=== PATIENT | female | born 1945 | race Caucasian/White ===

== ENCOUNTER 2022-02-01 15:43 | Emergency (ER) | payer OTHER ==
[~2022-02-01] VITALS: Ht 162.6 cm; Wt 70.3 kg
[2022-02-01 15:49] VITALS: BP_SYST 126
[2022-02-01 16:42] LABS: BASOPHILS # (AUTO) 0.1 K/uL (0.0-0.2); EOSINOPHILS # (AUTO) 0.2 K/uL (0.0-0.4); EOSINOPHILS % (AUTO) 2.9 % (0.0-4.0); HEMATOCRIT 41.4 % (36-48); HEMOGLOBIN 13.7 g/dL (12.0-16.0); LYMPHOCYTES # (AUTO) 2.3 K/uL (1.0-5.5); LYMPHOCYTES % (AUTO) 33.3 % (20.5-51.5); MEAN CORPUSCULAR HEMOGLOBIN 27 pg (27-31); MEAN CORPUSCULAR HGB CONC 33 % (32-36); MEAN CORPUSCULAR VOLUME 82 fL (79.0-98.0); MONOCYTES # (AUTO) 0.7 K/uL (0.0-1.0); MONOCYTES % (AUTO) 10.7 % (1.7-9.3); NEUTROPHILS # (AUTO) 3.6 K/uL (1.8-7.7); NEUTROPHILS % (AUTO) 52.1 % (40.0-70.0); PLATELET COUNT (AUTO) 261 K/uL (130-430); RED BLOOD CELL COUNT(AUTO) 5.02 MIL/uL (4.2-6.2); RED CELL DISTRIBUTION WIDTH 16.3 % (9.0-15.0); WHITE BLOOD COUNT (AUTO) 6.8 K/uL (4.8-10.8)
[2022-02-01 17:10] LABS: C-REACTIVE PROTEIN QUANT < 0.2 mg/dL (0-0.5)
[2022-02-01 18:14] LABS: ANION GAP 13 (5-15); CALCIUM 8.7 mg/dL (8.4-11.0); CHLORIDE 107 mmol/L (98-107); CREATININE 0.72 mg/dL (0.55-1.30); GLUCOSE 77 mg/dL (70-99); POTASSIUM 3.7 mmol/L (3.5-5.1); SODIUM SERUM 142 mmol/L (136-145); UREA NITROGEN, BLOOD 20 mg/dL (8-21)
[2022-02-01 18:15] LABS: ALANINE AMINOTRANSFERASE 30 U/L (12-78); ALBUMIN 3.8 g/dL (3.4-4.8); ASPARTATE AMINOTRANSFERASE 20 U/L (10-37); TOTAL BILIRUBIN 0.3 mg/dL (0.0-1.0)
== END 2022-02-01 16:37 | disposition left against medical advice (07) ==
LOC: SED 15:43
DX: M25.562 Pain in left knee (principal); R47.81 Slurred speech; M06.9 Rheumatoid arthritis, unspecified
CPT/HCPCS: 36415; 80053; 84484; 85025; 86140; 99283

== ENCOUNTER 2023-04-20 19:53 | Emergency (ER) | payer OTHER ==
[~2023-04-20] VITALS: Ht 157.5 cm; Wt 68.0 kg
[2023-04-20 20:17] VITALS: BP_SYST 132
--- NOTE | 2023-04-20 20:17 | NUR ---
Triaged and placed patient in ER bed 1 for evaluation. Report given to CLEMENTE WELLER for continuity of care. VSS, no acute respiratory distress noted at this time. Instructed to notify ED staff for any changes in condition or worsening of symptoms. Patient verbalized understanding.
--- NOTE | 2023-04-20 20:28 | NUR ---
Dr. MALIK is at bedside examining the patient.
--- NOTE | 2023-04-20 20:45 | NUR ---
RECEIVED FOR CARE AFTER REPORT. PLAN OF CARE EXPLAINED TO PT. VOICED UNDERSTANDING. AWAITING ADDITIONAL EVAL AND ORDERS.
[2023-04-20 20:59] LABS: BASOPHILS # (AUTO) 0.1 K/uL (0.0-0.2); BASOPHILS % (AUTO) 0.9 % (0.0-2.0); EOSINOPHILS # (AUTO) 0.1 K/uL (0.0-0.4); HEMATOCRIT 38.3 % (36-48); HEMOGLOBIN 12.6 g/dL (12.0-16.0); LYMPHOCYTES # (AUTO) 1.9 K/uL (1.0-5.5); LYMPHOCYTES % (AUTO) 25.2 % (20.5-51.5); MEAN CORPUSCULAR HEMOGLOBIN 26 pg (27-31); MEAN CORPUSCULAR HGB CONC 33 % (32-36); MEAN CORPUSCULAR VOLUME 81 fL (79.0-98.0); MONOCYTES # (AUTO) 0.9 K/uL (0.0-1.0); MONOCYTES % (AUTO) 12.2 % (1.7-9.3); NEUTROPHILS # (AUTO) 4.4 K/uL (1.8-7.7); NEUTROPHILS % (AUTO) 59.7 % (40.0-70.0); PLATELET COUNT (AUTO) 210 K/uL (130-430); RED BLOOD CELL COUNT(AUTO) 4.76 MIL/uL (4.2-6.2); RED CELL DISTRIBUTION WIDTH 15.4 % (9.0-15.0); WHITE BLOOD COUNT (AUTO) 7.4 K/uL (4.8-10.8)
[2023-04-20] MEDS ORDERED: BACITRACIN 1 GM OINT TP ONE (21:00)
[2023-04-20] MEDS ORDERED: DIPHTH,PERTUSS(ACELL),TET VAC 0.5 ML VIAL (Tdap) I.M. ONE (21:00)
[2023-04-20 21:14] LABS: ANION GAP 10 (5-15); CALCIUM 8.8 mg/dL (8.4-11.0); CHLORIDE 105 mmol/L (98-107); CREATININE 1.17 mg/dL (0.55-1.30); GLUCOSE 115 mg/dL (70-99); UREA NITROGEN, BLOOD 23 mg/dL (8-21)
[2023-04-20 21:18] LABS: ALANINE AMINOTRANSFERASE 29 U/L (12-78); ALBUMIN 3.6 g/dL (3.4-4.8); ASPARTATE AMINOTRANSFERASE 20 U/L (10-37); TOTAL BILIRUBIN 0.3 mg/dL (0.0-1.0)
[2023-04-20 21:19] LABS: ACETAMINOPHEN < 1 ug/mL (1-30); ALCOHOL, BLOOD < 3 mg/dL (<10)
--- NOTE | 2023-04-20 21:41 | NUR ---
WOUND CLEANED AND OINTMENT APPLIED.
[2023-04-20 22:05] LABS: BILIRUBIN,URINE NEGATIVE (NEGATIVE); BLOOD, URINE NEGATIVE (NEGATIVE); CLARITY/URINE CLEAR (CLEAR); COLOR,URINE YELLOW (YELLOW); GLUCOSE,URINE NEGATIVE (NEGATIVE); KETONES,URINE NEGATIVE (NEGATIVE); NITRITE, URINE NEGATIVE (NEGATIVE); PH,URINE 5.5 (5.0-8.0); PROTEIN URINE NEGATIVE (NEGATIVE); UROBILINOGEN,URINE 0.2 (0.2-1.0)
[2023-04-20 22:13] LABS: LEUKOCYTE ESTERASE ,URINE TRACE (NEGATIVE)
[2023-04-20 22:14] LABS: BACTERIA,URINE FEW /HPF (None Seen); MUCUS,URINE None Seen /LPF (None Seen); RBC,URINE NONE SEEN /HPF (0-3)
--- NOTE | 2023-04-21 00:37 | NUR ---
DISCUSSED CASE WITH [employer] [facility]. ( [facility]).UPDATED ER .
--- NOTE | 2023-04-21 02:00 | NUR ---
PT ASLEEP. NO SIGNS OF DISTRESS.
--- NOTE | 2023-04-21 04:00 | NUR ---
PT RESTING WITH NO SIGNS OF DISTRESS.
[2023-04-21] MEDS: cephALEXin 500 MG CAPSULE PO SCH ×3 (06:34→13:00)
--- NOTE | 2023-04-21 07:41 | NUR ---
ASSESMENT PER FLOWSHEET. COMFORT MEASURES, SUPPORTIVE CARE, SAFETY PRECAUTION, SUICIDE OBS MAINTAINED. PT FREE FROM INJURY TO SELF OR OTHERS AT THIS TIME. AWAIT TELEPSYCH EVAL ALL NEEDS MET. PT DENIES ANY DISCOMFORT. CONTRACTED FOR SAFETY. PT AGREES NOT TO HARM HERSELF DURING ED COURSE.
--- NOTE | 2023-04-21 08:30 | NUR ---
DR. GAINES-PSYCH AT BS. PT PLACED ON 5150 HOLD. PT MADE AWARE BY DR. HELTON DIET TRAY GIVEN.
--- NOTE | 2023-04-21 08:45 | NUR ---
Workers Compensation Administrator re: suicide risk In to see patient at the bedside in the ED. Prior to going in room, I spoke to Dr. Owens in the nurse's station. Per Dr. Callahan, the patient has no family and admits to being depressed for years. The patient came in today with superficial cuts, and spoke of wanting to . The patient was placed on a [address] Owens, the patient is medically cleared for transfer. Dr. Owens made a call out to [facility] to advise them that the referral was coming to them. Per , he will follow the patient should she go to [facility]. I met with patient at bedside. I introduced myself and explained why I was there to visit her. The patient is alert and oriented and was in agreement to speaking with me. Per patient, she is "proudly child free". She indicates she has no family. When I asked about her support system, she indicated she has two friends, Antelmo and Alfredo, whom she engages with and does activities with. The patient resides at [facility]. A telephone call was made to [facility] to advise them of the status of the patient. Update provided to Remy in the clinical department. A clinical packet was sent to [facility], [facility], [facility]. The hospitals were advised that the patient has an active 5150 hold and is in need of placement. Update also provided to STEVE Daley as the hospitals were advised to F/U with her for updates to status of placement.
--- NOTE | 2023-04-21 09:11 | NUR ---
PT REMAINS FREE FROM INJURY TO SELF OR OTHERS. SPOKE W/HOSP FOSTER PARENT FOR PLACEMENT.
--- NOTE | 2023-04-21 10:28 | NUR ---
PT OBSERVED LEAVING ROOM AND FOUND IN R/R. REITERRATED NEED TO STAY IN ROOM AND COMPLY W/ ALL SAFETY MEASURES OUTLINED. PT AGREES. CRUSHER INFORMED X2. CHARGE BETH INFORMED HOUSE SUP OF NECESSITY FOR SITTER FOR SAFETY. SENT FOR HOSPITAL BED FOR BED ALARM ATTACHED FOR ADDITIONAL MEASURES.
--- NOTE | 2023-04-21 12:55 | NUR ---
REPORT GIVEN TO [facility] [phone] SPOKE W/ ZULEMA GOULD
--- NOTE | 2023-04-21 13:25 | NUR ---
PT ACCEPTED TO [facility] AT 18[facility]. PT REMAINS FREE FROM INJURY TO SELF OR OTHERS. 1:1 SITTER REMAINS AT BS
--- NOTE | 2023-04-21 13:29 | NUR ---
Railroad Signal Operator GENERAL EXPEDITOR followed up with a referral for pt in ED for Psyc. placement as a [address] on 04/21/23 at 8:30 am. GENERAL EXPEDITOR called [facility] at [phone]. GENERAL EXPEDITOR make spoke to Zo who stated she has not had a chance to review the clinicals. GENERAL EXPEDITOR received a call from [facility], they will accept pt. and transportation is with [facility]. Pt. is leaving at 18:45 to [facility] Room [address] Dr. Alcantara and to call report to , . GENERAL EXPEDITOR communicated this to Nel in ED. GENERAL EXPEDITOR will remain available as needed.
--- NOTE | 2023-04-21 14:54 | NUR ---
PT RESTING, REMAINS FREE FROM INJURY TO SELF OR OTHERS.
[2023-04-21] MEDS ORDERED: cloNIDine HCL 0.1 MG TABLET PO ONE (15:30)
--- NOTE | 2023-04-21 15:38 | NUR ---
PATIENT BP NOTED TO BE ELEVATED. MD MADE AWARE. N/O OBTAINED FOR CLONIDINE. MEDICATION EXPLAINED TO PATIENT & ADMINISTERED.
--- NOTE | 2023-04-21 15:58 | NUR ---
PT W/ INTERMITTENT IRRITATION AND AGITATION WHEN UNABLE TO LEAVE DUE TO 5150 HOLD. NOTED ELEVATION IN B/P. DR SELF INFORMED. ORDERS NOTED. MEDS GIVEN PER ORDER. TO CONTINUE TO MONITOR.
[2023-04-21 17:09] VITALS: BP_SYST 147
--- NOTE | 2023-04-21 18:15 | NUR ---
REPORT TO NATALIE WELLER. [facility]. PT REMAINS FREE FROM INJURY TO SELF OR OTHERS.
--- NOTE | 2023-04-21 18:29 | NUR ---
KEFLEX GIVEN PRIOR TO TRANSPORT. REPORT NATALIE-SUPERVISOR PRESSING DEPARTMENT. [phone]
== END 2023-04-21 19:07 ==
LOC: SED 19:53
DX: R45.851 Suicidal ideations (principal); N30.00 Acute cystitis without hematuria; Z79.899 Other long term (current) drug therapy
CPT/HCPCS: 99285; 71045; 80053; 82550; 85025; 36415; 93005; 90715; 90471; 81000; G0482; G0480; G0481